=== PATIENT | female | born 1960 | race Caucasian/White ===

== ENCOUNTER 2017-08-04 21:21 | Emergency (ER) | payer OTHER ==
[~2017-08-04] VITALS: Ht 160 cm; Wt 54.0 kg
[2017-08-04 21:27] VITALS: BP 119/56
--- NOTE | 2017-08-04 23:30 | NUR ---
PATIENT AMBULATED TO ER BED 12.
--- NOTE | 2017-08-04 23:32 | NUR ---
PATIENT IS A 56 Y/O FEMALE WHO PRESENTS TO THE ED C/O EAR PAIN. PT STATES, "MY EAR HURTS AND I HAVE A HARD TIME BREATHING." PT REPORTS 6/10 ACHING THROAT PAIN THAT DOES NOT RADIATE. PT DENIES CP, SOB, N/V/D. NOTED NON-PRODUCTIVE COUGH. PT AAOX4, RR EVEN/UNLABORED. PT REPOSITIONED FOR COMFORT, BED IN LOWEST POSITION. ER MD DR. BROWN NOTIFIED. WILL CONTINUE TO MONITOR.
[2017-08-05] MEDS: KETOROLAC 60 MG/2 ML VIAL IM ONE (00:16)
[2017-08-05 00:30] VITALS: BP 119/72
--- NOTE | 2017-08-05 00:30 | NUR ---
Patient discharged with v/s stable. Written and verbal after care instructions given and explained. Patient alert, oriented and verbalized understanding of instructions. Ambulatory with steady gait. All questions addressed prior to discharge. ID band removed. Patient advised to follow up with PMD. Rx of MOTRIN 600MG, PREDNISONE 50MG AND NORCO 5MG-325MG given. Patient educated on indication of medication including possible reaction and side effects. Opportunity to ask questions provided and answered.
== END 2017-08-05 00:30 | disposition home or self-care (01) ==
LOC: MED 21:21
DX: H92.01 Otalgia, right ear (principal); J02.9 Acute pharyngitis, unspecified; R05 Cough; Z90.710 Acquired absence of both cervix and uterus
CPT/HCPCS: 93005; 96372; 99283; J1885